=== PATIENT | female | born 1945 | race Caucasian/White ===

== ENCOUNTER 2017-03-23 14:50 | Outpatient (CLI) | payer OTHER | END 2017-03-23 15:05 | disposition home or self-care (01) | LOC: LAB 14:50 | DX: K57.30 Diverticulosis of large intestine without perforation or abscess without bleeding (principal); K62.89 Other specified diseases of anus and rectum; K62.5 Hemorrhage of anus and rectum; K59.09 Other constipation ==

== ENCOUNTER 2017-03-23 14:53 | Outpatient (CLI) | payer OTHER | END 2017-03-23 15:01 | disposition home or self-care (01) | LOC: RAD 14:53 | DX: K57.30 Diverticulosis of large intestine without perforation or abscess without bleeding (principal); K62.89 Other specified diseases of anus and rectum; K62.5 Hemorrhage of anus and rectum; K59.09 Other constipation ==

== ENCOUNTER 2017-03-23 14:54 | Outpatient (CLI) | payer OTHER | END 2017-03-23 15:03 | disposition home or self-care (01) | LOC: EKG 14:54 | DX: K57.30 Diverticulosis of large intestine without perforation or abscess without bleeding (principal); K62.89 Other specified diseases of anus and rectum; K62.5 Hemorrhage of anus and rectum; K59.09 Other constipation; Z01.810 Encounter for preprocedural cardiovascular examination ==

== ENCOUNTER 2017-04-01 05:45 | Day surgery (SDC) | payer OTHER ==
[~2017-04-01 05:45] MED LIST: CILOSTAZOL50 MG PO; COZAAR50 MG PO; FLUOXETINE HCL40 MG PO; NORVAS PO; PROTONIX20 MG PO; PROTOZONE; RESTORIL30 M1 PO; SYNTH PO; TENDERWRAP UNN1 EACH
[2017-04-01] MEDS ORDERED: COLACE100 MG PO (11:01)
[2017-04-01] MEDS ORDERED: PERCOCET 5-3251 EACH PO (11:01)
== END 2017-04-01 16:00 | disposition home or self-care (01) ==
LOC: CIR.AMB 05:45
DX: K64.8 Other hemorrhoids (principal); K62.89 Other specified diseases of anus and rectum; K64.2 Third degree hemorrhoids